=== PATIENT | male | born 1960 | race Caucasian/White ===

== ENCOUNTER 2016-09-07 06:13 | Day surgery (SDC) | payer BC ==
[2016-09-07] MEDS ORDERED: Lactated Ringers 1,000 ML IV SCH (07:00)
[2016-09-07] MEDS ORDERED: Propofol 200 MG/20 ML SDV ONE ×2 (07:16→07:49)
[2016-09-07] MEDS ORDERED: fentaNYL 100 MCG/2 ML SDV ONE (07:16)
[2016-09-07] MEDS ORDERED: Midazolam 1 MG/ML 2 ML SDV ONE (07:16)
[2016-09-07 09:23] VITALS: BP 134/83
--- NOTE | 2016-09-08 08:01 | OR ---
DATE OF PROCEDURE: 09/07/2016 PREOPERATIVE DIAGNOSIS: History of colon polyps. POSTOPERATIVE DIAGNOSIS: Three colon polyps, history of colon polyps. PROCEDURE PERFORMED: Colonoscopy to the cecum with biopsy resection of polyps in the right colon, transverse colon, and distal transverse colon. ANESTHESIA: IV anesthesia with monitored anesthesia care. INDICATIONS: This 56-year-old white male is here for a colonoscopy. He has a history of colon polyps. He says his last colonoscopic exam was done a year ago. I counseled him for the procedure including risks and alternatives, and he gave his informed consent to proceed. DESCRIPTION OF PROCEDURE: The patient was placed in the left lateral decubitus position. IV anesthesia was administered by the Anesthesia Service. Time-out was held. A rectal exam was performed, which was unremarkable except for an absent prostate. The flexible video Olympus colonoscope was introduced through his anus, up his rectum, and out his colon all the way to the cecum. En route in the right colon, we saw a small polyp, which was removed with the biopsy forceps. Once the cecum was reached, the scope was slowly withdrawn examining the mucosa throughout. We saw another small polyp in the transverse colon which was removed with the biopsy forceps and a third polyp was seen in the distal transverse colon. This also was removed with the biopsy forceps. The scope was withdrawn further with no other lesions noted. The scope was retroflexed in rectum with the distal rectum appearing unremarkable. The scope was straightened and removed. He tolerated the procedure well. Mauricio Ellis MD /[id number] RO
== END 2016-09-07 09:20 | disposition home or self-care (01) ==
LOC: JP.SDS 06:13
PROVIDERS: ATTEND Surgery
DX: Z12.11 Encounter for screening for malignant neoplasm of colon (principal); D12.2 Benign neoplasm of ascending colon; D12.3 Benign neoplasm of transverse colon; Z86.010 Personal history of colon polyps; I11.9 Hypertensive heart disease without heart failure; E78.5 Hyperlipidemia, unspecified; Z79.899 Other long term (current) drug therapy; Z98.890 Other specified postprocedural states
CPT/HCPCS: 45380; J2250; J2704; J3010; J7120; 88305

== ENCOUNTER 2017-01-13 05:25 | Day surgery (SDC) | payer BC ==
[2017-01-13] MEDS: Sodium Chloride 0.9% 1,000 ML IV SCH ×2 (06:37→21:41)
[2017-01-13] MEDS ORDERED: Bupivacaine 0.5% 50 ML MDV ONE (06:41)
[2017-01-13] MEDS ORDERED: Lidocaine 1% with EPINEPHrine 1:100,000 50 ML MDV ONE (06:41)
[2017-01-13] MEDS ORDERED: ceFAZolin 2 GM in Sodium Chloride 0.9% 50 ML IV ONE (07:30)
[2017-01-13] MEDS ORDERED: metroNIDAZOLE/Normal Saline 500 MG in Premix Bag 1 BAG IV ONE (07:30)
[2017-01-13] MEDS ORDERED: Propofol 200 MG/20 ML SDV ONE (07:31)
[2017-01-13] MEDS ORDERED: Neostigmine Methylsulfate 1 MG/ML 5 ML Syringe ONE (07:31)
[2017-01-13] MEDS ORDERED: Succinylcholine 200 MG/10 ML MDV ONE (07:31)
[2017-01-13] MEDS ORDERED: Glycopyrrolate 0.2 MG/ML 5 ML MDV ONE (07:31)
[2017-01-13] MEDS ORDERED: Ondansetron 4 MG/2 ML SDV ONE (07:31)
[2017-01-13] MEDS ORDERED: Rocuronium 50 MG/5 ML Vial ONE (07:31)
[2017-01-13] MEDS ORDERED: Dexamethasone 4 MG/ML SDV ONE (07:31)
[2017-01-13] MEDS ORDERED: Lidocaine 1% with EPINEPHrine 1:100,000 50 ML MDV INFILT ONE ×2 (08:16)
[2017-01-13] MEDS ORDERED: Bupivacaine 0.5% 50 ML MDV INFILT ONE ×2 (08:17)
[2017-01-13] MEDS ORDERED: hydrOXYzine HCl 100 MG/2 ML SDV IM ONE (08:32)
[2017-01-13] MEDS ORDERED: Docusate Sodium 100 MG Cap PO PRN (08:35)
[2017-01-13] MEDS ORDERED: Benzocaine/Cetylpyridinium/Menthol Lozenge MUCMEM PRN (08:35)
[2017-01-13] MEDS ORDERED: Promethazine 25 MG/ML SDV IM PRN (08:35)
[2017-01-13] MEDS ORDERED: Bisacodyl 5 MG Tab PO PRN (08:35)
[2017-01-13] MEDS ORDERED: Zolpidem 5 MG Tab PO PRN (08:35)
[2017-01-13] MEDS ORDERED: diphenhydrAMINE 50 MG/ML SDV IVPUSH PRN (08:35)
[2017-01-13] MEDS ORDERED: Ondansetron 4 MG/2 ML SDV IVPUSH PRN (08:35)
[2017-01-13] MEDS ORDERED: Ketorolac 60 MG/2 ML SDV ONE (08:36)
[2017-01-13] MEDS ORDERED: fentaNYL 100 MCG/2 ML SDV IVPUSH PRN (08:42)
[2017-01-13] MEDS: Acetaminophen/HYDROcodone 325-10 MG Tab PO PRN (14:46)
[2017-01-14] MEDS: Acetaminophen/HYDROcodone 325-10 MG Tab PO PRN (03:36)
[2017-01-14 07:20] VITALS: BP 149/87
--- NOTE | 2017-01-14 09:25 | PN ---
DATE OF SERVICE: 01/14/2017 SUBJECTIVE: The patient is doing well. Pain is well controlled. No nausea, vomiting, shortness of breath, or chest pain. OBJECTIVE: VITAL SIGNS: Stable. Temperature 97.9, blood pressure 149/87, pulse 50, respirations 16, and 96% on room air. CARDIOVASCULAR: Regular rhythm and rate. RESPIRATORY: Lungs are clear to consultation bilaterally. ABDOMEN: Bowel sounds positive. Incision is healing well. LABORATORY RESULTS: Show a normal CBC and normal comprehensive metabolic panel. ASSESSMENT AND PLAN: Status post laparoscopic cholecystectomy. The patient was kept overnight due to unknown medical reasons, which was chosen by the nursing staff without my input. Therefore, the patient will be discharged today. Chris Barnes MD /[id number]
--- NOTE | 2017-01-16 07:36 | OR ---
DATE OF PROCEDURE: 01/13/2017 PROCEDURE: Laparoscopic cholecystectomy. PREOPERATIVE DIAGNOSES: 1. Choledocholithiasis. 2. Cholecystitis. 3. Cholelithiasis. POSTOPERATIVE DIAGNOSES: 1. Choledocholithiasis. 2. Cholecystitis. 3. Cholelithiasis. COMPLICATIONS: None. CELEBRITY MANAGER: None. ANESTHESIA: General/local. RISKS: Risks, benefits, alternatives, limitations including, but not limited to infection, bleeding, and injury to common bile duct, cystic duct leaks and other risks not listed here. The patient understands these risks and wished to proceed. PROCEDURE IN DETAIL: The patient was placed in supine position. A curvilinear supraumbilical incision was made. A Veress needle was used to enter the abdomen after drop test was performed without abnormality. This was followed by an Optiview trocar. An additional 10 and two 5 mm ports were also entered under direct visualization. The gallbladder was retracted cephalad and the infundibulum retracted inferolaterally. Using blunt dissection "clear view" of the gallbladder was obtained with a single pulsatile structure entering the gallbladder and a single nonpulsatile structure into the gallbladder. These were clipped x3 and subsequently transected. The remaining 1/3 of the gallbladder was removed off the gallbladder bed without difficulty. The gallbladder was delivered through the upper port using a standard bag. The gallbladder bed was inspected for abnormality which there was none. This was thoroughly irrigated. The patient was tilted in multiple positions to remove the maximum amount of fluid. The air was removed. The wounds were closed with 3-0 Vicryl, 4-0 Vicryl and Dermabond after irrigation and local anesthetic applied. The patient tolerated the procedure well. Chris Barnes MD /[id number]
--- NOTE | 2017-01-16 08:27 | DISCH ---
DISCHARGE DIAGNOSIS: Status post laparoscopic cholecystectomy. ADDITIONAL DIAGNOSIS: None. SUMMARY OF HOSPITAL COURSE: A pleasant 56-year-old male who underwent uneventful laparoscopic cholecystectomy without complication. The patient was kept overnight for unknown etiology. At present, his pain is well-controlled. No nausea, vomiting, shortness of breath, or chest pain. Vital signs are stable. FOLLOWUP: Follow up with Surgery in 7-14 days. DISCHARGE MEDICATIONS: Please see MAR, but include Gerald for pain.
== END 2017-01-14 09:02 | disposition home or self-care (01) ==
LOC: JP.SDS 05:25 → JP.MS 09:20 → JP.SDS 01-14 09:02
PROVIDERS: ATTEND Surgery
DX: K81.1 Chronic cholecystitis (principal); I10 Essential (primary) hypertension; E78.5 Hyperlipidemia, unspecified; E66.01 Morbid (severe) obesity due to excess calories; Z68.35 Body mass index [BMI] 35.0-35.9, adult; Z90.49 Acquired absence of other specified parts of digestive tract; Z98.890 Other specified postprocedural states
CPT/HCPCS: 36415; 47562; 80053; 85025; A9270; J0330; J0690; J1100; J1885; J2405; J2704; J2710; J3010; J3410; J7040; J7050; J7120; 88304

== ENCOUNTER 2017-09-24 08:46 | Observation (INO) | payer BC ==
--- NOTE | 2017-09-24 09:19 | EDM.PDOC ---
ED HPI GENERAL MEDICAL PROBLEM - General Chief Complaint: Chest Pain Stated Complaint: A FIB? Time Seen by Provider: 09/24/17 09:19 Source of Information: Reports: Patient, Family History Limitations: Reports: No Limitations - History of Present Illness INITIAL COMMENTS - FREE TEXT/NARRATIVE: pt was at work and he started feeling dizzy and thought he went back into atrial fib. He has not been ill. He was at work and it was about 7thirty. He had slight chest pressure but no actual sharp chest pain. Onset: Today Duration: Hour(s): Location: Reports: Chest Quality: Reports: Pressure Associated Symptoms: Reports: Other (mild chest tightness and pt feels liteheaded. ) Chest Pain Score (Numeric/FACES): 4 - Related Data Allergies Allergy/AdvReac Type Severity Reaction Status Date / Time No Known Allergies Allergy Verified 09/07/16 06:49 Home Meds: Home Meds Triamterene/Hydrochlorothiazid [Triamterene-HCTZ 37.5-25 MG] 1 each PO DAILY [History] Allopurinol [Zyloprim] 300 mg PO DAILY 09/05/16 [History] Metoprolol Tartrate 12.5 mg PO DAILY 09/05/16 [History] Nitroglycerin 0.4 mg SL ASDIRECTED PRN 09/05/16 [History] Warfarin [Coumadin] 5 mg PO DAILY 09/05/16 [History] Multivitamin with Minerals [Multiple Vitamin] 1 tab PO DAILY 09/28/17 [History] Past Medical History HEENT History: Reports: Impaired Vision Cardiovascular History: Reports: Afib, Hypertension Gastrointestinal History: Reports: Cholelithiasis, Colon Polyp Genitourinary History: Reports: Prostate Disorder Musculoskeletal History: Reports: Fracture, Gout Endocrine/Metabolic History: Reports: Obesity/BMI 30+ Oncologic (Cancer) History: Reports: Prostate - Infectious Disease History Infectious Disease History: Reports: Chicken Pox, Measles, Mumps - Past Surgical History HEENT Surgical History: Reports: Myringotomy w Tube(s), Tonsillectomy Cardiovascular Surgical History: Reports: Other (See Below) Other Cardiovascular Surgeries/Procedures: cardioverter GI Surgical History: Reports: Appendectomy, Cholecystectomy, Colonoscopy Male Surgical History: Reports: Prostate Biopsy, Prostatectomy Endocrine Surgical History: Reports: None Musculoskeletal Surgical History: Reports: None Oncologic Surgical History: Reports: Other (See Below) Other Oncologic Surgeries/Procedures: prostate bx and removal Social & Family History - Tobacco Use Smoking Status *Q: Never Smoker Second Hand Smoke Exposure: No - Caffeine Use Caffeine Use: Reports: Soda - Alcohol Use Days Per Week of Alcohol Use: 0 - Recreational Drug Use Recreational Drug Use: No ED ROS GENERAL - Review of Systems Review Of Systems: See Below Constitutional: Reports: No Symptoms HEENT: Reports: No Symptoms Respiratory: Reports: No Symptoms Cardiovascular: Reports: Palpitations, Other ( slight tightness. ) Endocrine: Reports: No Symptoms GI/Abdominal: Reports: No Symptoms : Reports: No Symptoms Musculoskeletal: Reports: No Symptoms Skin: Reports: No Symptoms ED EXAM, GENERAL - Physical Exam Exam: See Below Free Text/Narrative:: pt arrived eliza adams. He was at work and he thought he went back into atrial fib. Exam Limited By: No Limitations General Appearance: Alert, Mild Distress Ears: Normal TMs Nose: Normal Inspection Throat/Mouth: Normal Inspection Head: Atraumatic Neck: Normal Inspection Respiratory/Chest: No Respiratory Distress Cardiovascular: Tachycardia, Irregularly Irregular GI/Abdominal: Soft, Non-Tender (Male) Exam: Deferred Rectal (Males) Exam: Deferred Back Exam: Normal Inspection Extremities: Normal Inspection Neurological: Alert, Oriented, Normal Cognition Psychiatric: Normal Affect Course - Vital Signs Last Recorded V/S: Last Vital Signs Temp 36.0 C 09/26/17 13:00 Pulse 64 09/26/17 15:00 Resp 13 09/26/17 15:00 BP 127/85 09/26/17 15:00 Pulse Ox 94 L 09/26/17 15:00 - Orders/Labs/Meds Labs: Laboratory Tests 09/24/17 09/24/17 09/24/17 Range/Units 08:55 08:55 08:55 WBC (4.5-11.0) K/uL RBC (4.30-5.90) M/uL Hgb (12.0-15.0) g/dL Hct (40.0-54.0) % MCV (80-98) fL MCH (27-31) pg MCHC (32-36) % Plt Count (150-400) K/uL Neut % (Auto) (36-66) % Lymph % (Auto) (24-44) % [place] % (Auto) (2-6) % Eos % (Auto) (2-4) % Baso % (Auto) (0-1) % PT 19.3 H (9.5-12.0) sec INR 1.76 H (0.80-1.20) Sodium 140 (140-148) mmol/L Potassium 3.9 (3.6-5.2) mmol/L Chloride 105 (100-108) mmol/L Carbon Dioxide 24 (21-32) mmol/L Anion Gap 11.1 (5.0-14.0) mmol/L BUN 23 H D (7-18) mg/dL Creatinine 1.2 (0.8-1.3) mg/dL Est Cr Clr Drug Dosing 70.59 mL/min Estimated GFR (MDRD) > 60 (>60) Glucose 125 H (74-106) mg/dL Calcium 9.1 (8.5-10.1) mg/dL Magnesium (1.8-2.4) mg/dL Total Bilirubin 0.5 (0.2-1.0) mg/dL AST 25 (15-37) U/L ALT 36 (12-78) U/L Alkaline Phosphatase 104 (46-116) U/L Troponin I < 0.017 (0.000-0.056) ng/mL Total Protein 7.4 (6.4-8.2) g/dL Albumin 3.6 (3.4-5.0) g/dL Globulin 3.8 H (2.3-3.5) g/dL Albumin/Globulin Ratio 1.0 L (1.2-2.2) 09/24/17 09/24/17 Range/Units 08:55 08:59 WBC 6.0 (4.5-11.0) K/uL RBC 5.88 (4.30-5.90) M/uL Hgb 16.5 H D (12.0-15.0) g/dL Hct 49.4 (40.0-54.0) % MCV 84 (80-98) fL MCH 28 (27-31) pg MCHC 33 (32-36) % Plt Count 351 (150-400) K/uL Neut % (Auto) 63 (36-66) % Lymph % (Auto) 24 (24-44) % [place] % (Auto) 11 H (2-6) % Eos % (Auto) 2 (2-4) % Baso % (Auto) 1 (0-1) % PT (9.5-12.0) sec INR (0.80-1.20) Sodium (140-148) mmol/L Potassium (3.6-5.2) mmol/L Chloride (100-108) mmol/L Carbon Dioxide (21-32) mmol/L Anion Gap (5.0-14.0) mmol/L BUN (7-18) mg/dL Creatinine (0.8-1.3) mg/dL Est Cr Clr Drug Dosing mL/min Estimated GFR (MDRD) (>60) Glucose (74-106) mg/dL Calcium (8.5-10.1) mg/dL Magnesium 2.2 (1.8-2.4) mg/dL Total Bilirubin (0.2-1.0) mg/dL AST (15-37) U/L ALT (12-78) U/L Alkaline Phosphatase (46-116) U/L Troponin I (0.000-0.056) ng/mL Total Protein (6.4-8.2) g/dL Albumin (3.4-5.0) g/dL Globulin (2.3-3.5) g/dL Albumin/Globulin Ratio (1.2-2.2) Meds: Medications Discontinued Medications Generic Name Dose Route Start Last Admin Trade Name Freq PRN Reason Stop Dose Admin Acetaminophen 650 mg 09/24/17 12:05 Tylenol PO Q4H PRN Pain (Mild 1-3)/fever Allopurinol 300 mg 09/25/17 09:00 09/26/17 08:58 Zyloprim PO 300 mg DAILY ERIN Administration Diltiazem HCl 10 mg 09/24/17 09:20 09/24/17 09:23 Diltiazem IVPUSH 09/24/17 09:21 Not Given ONETIME ONE Diltiazem HCl 60 mg 09/24/17 09:35 09/24/17 09:39 Cardizem PO 09/24/17 09:36 60 mg ONETIME ONE Administration Diltiazem HCl 30 mg 09/24/17 14:00 09/26/17 14:36 Cardizem PO Not Given Q6H ERIN Diltiazem HCl 30 mg 09/24/17 22:00 09/25/17 05:39 Cardizem PO 30 mg Q8HR ERIN Administration Diltiazem HCl 60 mg 09/25/17 10:00 09/26/17 03:54 Cardizem PO 60 mg Q6H ERIN Administration Sodium Chloride 1,000 mls @ 150 mls/hr 09/24/17 09:45 09/24/17 09:41 Normal Saline IV 150 mls/hr ASDIRECTED ERIN Administration Metoprolol Tartrate 5 mg 09/24/17 09:23 09/24/17 09:26 Lopressor IVPUSH 09/24/17 09:24 5 mg ONETIME ONE Administration Metoprolol Tartrate 25 mg 09/25/17 09:00 09/26/17 08:56 Lopressor PO 25 mg DAILY ERIN Administration Ondansetron HCl 4 mg 09/24/17 12:05 Zofran Odt PO Q6H PRN Nausea able to take PO Oxycodone HCl 5 mg 09/24/17 12:05 Oxycodone PO Q4H PRN Pain (moderate 4-6) Propofol Confirm 09/26/17 12:29 Diprivan 20 Ml Administered 09/26/17 12:30 Dose 200 mg .ROUTE .STK-MED ONE Sodium Chloride 10 ml 09/24/17 12:05 Saline Flush FLUSH ASDIRECTED PRN Keep Vein Open Triamterene/HCTZ 1 each 09/25/17 09:00 09/26/17 08:58 Maxzide 25-37.5 Mg PO 1 each DAILY ERIN Administration Warfarin Sodium 7.5 mg 09/24/17 13:30 09/24/17 13:57 Coumadin PO 09/24/17 13:31 7.5 mg ONETIME ONE Administration Warfarin Sodium 5 mg 09/25/17 15:00 09/25/17 14:33 Coumadin PO 09/25/17 15:01 5 mg ONETIME ONE Administration - Re-Assessments/Exams Free Text/Narrative Re-Assessment/Exam: 09/24/17 09:40 Pt has an inr of 1.76 which is subtherapeutic. He has a normal trop. He was given lopressor 5 mg iv and his rate did go down in the 120 range. Departure - Departure Time of Disposition: 15:00 Disposition: Admitted As Inpatient 64 Condition: Fair Clinical Impression: Atrial fibrillation, Paroxysmal atrial fibrillation with rapid ventricular response
[2017-09-24] MEDS ORDERED: Diltiazem 25 MG/5 ML SDV IVPUSH ONE (09:20)
[2017-09-24] MEDS ORDERED: Metoprolol Tartrate 5 MG/5 ML SDV IVPUSH ONE (09:23)
[2017-09-24] MEDS ORDERED: Diltiazem IR 30 MG Tab PO ONE (09:35)
[2017-09-24] MEDS ORDERED: Sodium Chloride 0.9% 1,000 ML IV SCH (09:45)
--- NOTE | 2017-09-24 10:20 | PCM.HP ---
H&P History of Present Illness - General Date of Service: 09/24/17 Admit Problem/Dx: Admission Diagnosis/Problem Admission Diagnosis/Problem Atrial fibrillation Source of Information: Patient, Family, Provider, RN Notes Reviewed History Limitations: Reports: No Limitations - History of Present Illness Initial Comments - Free Text/Narative: Mr. Arauz is a 57-year-old gentleman was admitted to observation status through the emergency department with atrial fibrillation and rapid ventricular response. He has a previous history of atrial fibrillation with 1 previous documented episode and he is on long-term oral anticoagulation with warfarin. He was feeling well until this morning when he noted rapid heart rate that seemed to be irregular and he presented to the emergency department for further evaluation. He did report symptoms of mild chest heaviness, lightheadedness, and shortness of breath. INR obtained in the emergency department is subtherapeutic at 1.75. Rate when he presented to the emergency department was in the range of 140 and has improved after he received IV Lopressor 5 mg. He is also received a dose of diltiazem 60 mg by mouth. EKG shows no acute ST segment changes and troponin level is within normal range. Chest Pain Score (Numeric/FACES): 4 - Related Data Allergies/Adverse Reactions: Allergies Allergy/AdvReac Type Severity Reaction Status Date / Time No Known Allergies Allergy Verified 09/07/16 06:49 Home Medications: Home Meds Triamterene/Hydrochlorothiazid [Triamterene-HCTZ 37.5-25 MG] 1 each PO DAILY [History] Allopurinol [Zyloprim] 300 mg PO DAILY 09/05/16 [History] Metoprolol Tartrate 25 mg PO DAILY 09/05/16 [History] Nitroglycerin 0.4 mg SL ASDIRECTED PRN 09/05/16 [History] Warfarin [Coumadin] 5 mg PO ASDIRECTED 09/05/16 [History] Warfarin [Coumadin] 2.5 mg PO ASDIRECTED 01/13/17 [History] Past Medical History HEENT History: Reports: Impaired Vision Cardiovascular History: Reports: Afib, Hypertension Gastrointestinal History: Reports: Cholelithiasis, Colon Polyp Genitourinary History: Reports: Prostate Disorder Musculoskeletal History: Reports: Fracture, Gout Endocrine/Metabolic History: Reports: Obesity/BMI 30+ Oncologic (Cancer) History: Reports: Prostate - Infectious Disease History Infectious Disease History: Reports: Chicken Pox, Measles, Mumps - Past Surgical History HEENT Surgical History: Reports: Myringotomy w Tube(s), Tonsillectomy Cardiovascular Surgical History: Reports: Other (See Below) Other Cardiovascular Surgeries/Procedures: cardioverter GI Surgical History: Reports: Appendectomy, Cholecystectomy, Colonoscopy Male Surgical History: Reports: Prostate Biopsy, Prostatectomy Endocrine Surgical History: Reports: None Musculoskeletal Surgical History: Reports: None Oncologic Surgical History: Reports: Other (See Below) Other Oncologic Surgeries/Procedures: prostate bx and removal Social & Family History - Tobacco Use Smoking Status *Q: Never Smoker Second Hand Smoke Exposure: No - Caffeine Use Caffeine Use: Reports: Soda - Alcohol Use Days Per Week of Alcohol Use: 0 - Recreational Drug Use Recreational Drug Use: No H&P Review of Systems - Review of Systems: Review Of Systems: See Below General: Reports: Weakness. Denies: Fever, Chills, Diaphoresis HEENT: Reports: No Symptoms Pulmonary: Reports: No Symptoms Cardiovascular: Reports: Palpitations. Denies: Chest Pain, Dyspnea on Exertion , Orthopnea, PND, Edema, Lightheadedness Gastrointestinal: Reports: No Symptoms Genitourinary: Reports: No Symptoms Musculoskeletal: Reports: No Symptoms Skin: Reports: No Symptoms Psychiatric: Reports: No Symptoms Neurological: Reports: No Symptoms Hematologic/Lymphatic: Reports: No Symptoms Immunologic: Reports: No Symptoms Exam - Exam Exam: See Below - Vital Signs Vital Signs: Last Vital Signs Temp 98.6 F 09/24/17 08:54 Pulse 122 H 09/24/17 09:34 Resp 19 09/24/17 09:25 BP 139/100 H 09/24/17 09:34 Pulse Ox 95 09/24/17 09:25 Weight: 280 lb - Exam Quality Assessment: DVT Prophylaxis General: Alert, Oriented, Cooperative, Mild Distress HEENT: Conjunctiva Clear, Hearing Intact, Mucosa Moist & [place], Normal Nasal Septum, Posterior Pharynx Clear, Pupils Equal Neck: Supple, Trachea Midline, +2 Carotid Pulse wo Bruit Lungs: Clear to Auscultation, Normal Respiratory Effort Cardiovascular: Normal S1, Normal S2, Irregular Rhythm, Tachycardia. No: Systolic Murmur, Diastolic Murmur GI/Abdominal Exam: Soft, Non-Tender, No Organomegaly, No Distention Back Exam: Normal Inspection, Full Range of Motion Extremities: Non-Tender, No Pedal Edema Skin: Warm, Dry, Intact Neurological: Cranial Nerves Intact, Strength Equal Bilateral, Normal Speech, Normal Tone, Sensation Intact. No: Focal Deficit Neuro Extensive - Mental Status: Alert, Oriented x3, Normal Mood/Affect, Normal Cognition, Memory Intact - Patient Data Lab Results Last 24 hrs: Laboratory Results - last 24 hr 09/24/17 09/24/17 09/24/17 Range/Units 08:55 08:55 08:55 WBC (4.5-11.0) K/uL RBC (4.30-5.90) M/uL Hgb (12.0-15.0) g/dL Hct (40.0-54.0) % MCV (80-98) fL MCH (27-31) pg MCHC (32-36) % Plt Count (150-400) K/uL Neut % (Auto) (36-66) % Lymph % (Auto) (24-44) % [place] % (Auto) (2-6) % Eos % (Auto) (2-4) % Baso % (Auto) (0-1) % PT 19.3 H (9.5-12.0) sec INR 1.76 H (0.80-1.20) Sodium 140 (140-148) mmol/L Potassium 3.9 (3.6-5.2) mmol/L Chloride 105 (100-108) mmol/L Carbon Dioxide 24 (21-32) mmol/L Anion Gap 11.1 (5.0-14.0) mmol/L BUN 23 H D (7-18) mg/dL Creatinine 1.2 (0.8-1.3) mg/dL Est Cr Clr Drug Dosing 70.59 mL/min Estimated GFR (MDRD) > 60 (>60) Glucose 125 H (74-106) mg/dL Calcium 9.1 (8.5-10.1) mg/dL Magnesium (1.8-2.4) mg/dL Total Bilirubin 0.5 (0.2-1.0) mg/dL AST 25 (15-37) U/L ALT 36 (12-78) U/L Alkaline Phosphatase 104 (46-116) U/L Troponin I < 0.017 (0.000-0.056) ng/mL Total Protein 7.4 (6.4-8.2) g/dL Albumin 3.6 (3.4-5.0) g/dL Globulin 3.8 H (2.3-3.5) g/dL Albumin/Globulin Ratio 1.0 L (1.2-2.2) 09/24/17 09/24/17 Range/Units 08:55 08:59 WBC 6.0 (4.5-11.0) K/uL RBC 5.88 (4.30-5.90) M/uL Hgb 16.5 H D (12.0-15.0) g/dL Hct 49.4 (40.0-54.0) % MCV 84 (80-98) fL MCH 28 (27-31) pg MCHC 33 (32-36) % Plt Count 351 (150-400) K/uL Neut % (Auto) 63 (36-66) % Lymph % (Auto) 24 (24-44) % [place] % (Auto) 11 H (2-6) % Eos % (Auto) 2 (2-4) % Baso % (Auto) 1 (0-1) % PT (9.5-12.0) sec INR (0.80-1.20) Sodium (140-148) mmol/L Potassium (3.6-5.2) mmol/L Chloride (100-108) mmol/L Carbon Dioxide (21-32) mmol/L Anion Gap (5.0-14.0) mmol/L BUN (7-18) mg/dL Creatinine (0.8-1.3) mg/dL Est Cr Clr Drug Dosing mL/min Estimated GFR (MDRD) (>60) Glucose (74-106) mg/dL Calcium (8.5-10.1) mg/dL Magnesium 2.2 (1.8-2.4) mg/dL Total Bilirubin (0.2-1.0) mg/dL AST (15-37) U/L ALT (12-78) U/L Alkaline Phosphatase (46-116) U/L Troponin I (0.000-0.056) ng/mL Total Protein (6.4-8.2) g/dL Albumin (3.4-5.0) g/dL Globulin (2.3-3.5) g/dL Albumin/Globulin Ratio (1.2-2.2) Result Diagrams: 09/24/17 08:59 09/24/17 08:55 *Q Meaningful Use (ADM) - VTE Risk Assess *Q Each Risk Factor Represents 1 Point: Age 41 - 59 years, Obesity ( BMI > 25 kg/m2 ) Total Score 1 Point Risk Factors: 2 Each Risk Factor Represents 2 Points: None Total Score 2 Point Risk Factors: 0 Each Risk Factor Represents 3 Points: None Total Score 3 Point Risk Factors: 0 Each Risk Factor Represents 5 Points: None Total Score 5 Point Risk Factors: 0 Venous Thromboembolism Risk Factor Score *Q: 2 Problem List Initiated/Reviewed/Updated: Yes Orders Last 24hrs: Active Orders 24 hr Category Date Time Status Patient Status Manage Transfer [TRANSFER] Routine ADT 09/24/17 10:13 Ordered EKG Documentation Completion [RC] ASDIRECTED Care 09/24/17 09:00 Active Chest 1V Frontal [CR] Stat Exams 09/24/17 09:45 Taken UA W/MICROSCOPIC [URIN] Urgent Lab 09/24/17 08:59 Ordered Sodium Chloride 0.9% [Normal Saline] 1,000 ml Med 09/24/17 09:45 Active IV ASDIRECTED Resuscitation Status Routine Resus Stat 09/24/17 10:15 Ordered EKG 12 Lead [EK] Routine Ther 09/24/17 09:00 Ordered Medication Orders Sodium Chloride (Normal Saline) 1,000 mls @ 150 mls/hr IV ASDIRECTED ERIN Last Admin: 09/24/17 09:41 Dose: 150 mls/hr Assessment/Plan Comment:: ASSESSMENT AND PLAN ATRIAL FIBRILLATION WITH RAPID VENTRICULAR RESPONSE-previous history, abrupt onset this morning, associated with relatively mild symptoms. Not a candidate for cardioversion given subtherapeutic INR. IV diltiazem is not available, we' ll plan to use oral medication and IV barbara therapy as needed -Observation admission to ICU -IV Lopressor as needed -Diltiazem 30 mg by mouth every 6 hours -Warfarin 7.5 mg by mouth today -Recheck INR in a.m. HYPERTENSION -Continue outpatient medical regimen CORONARY ARTERY DISEASE-currently asymptomatic -Continue outpatient management MAINTENANCE ISSUES -DVT prophylaxis;Current therapy with warfarin should provide adequate DVT prophylaxis -GI prophylaxis;Not indicated -Beckford catheter;None indicated -Nutrition;2 g sodium diet -Nicotine dependence;Not required CODE STATUS-FULL CODE ADMISSION STATUS-this patient will be admitted to observation status, expect no more than a one night hospital stay for evaluation and management of problems as outlined above. DISPOSITION-anticipate discharge to home after the hospital stay. PRIMARY CARE PROVIDER-Dr. Hernandez
[2017-09-24] MEDS ORDERED: Acetaminophen 325 MG Tab PO PRN (12:05)
[2017-09-24] MEDS ORDERED: Ondansetron 4 MG Tab.DIS PO PRN (12:05)
[2017-09-24] MEDS ORDERED: Sodium Chloride 0.9% 10 ML Syringe FLUSH PRN (12:05)
[2017-09-24] MEDS ORDERED: oxyCODONE 5 MG Tab PO PRN (12:05)
[2017-09-24] MEDS ORDERED: Warfarin 2.5 MG Tab PO ONE (13:30)
[2017-09-24] MEDS: Diltiazem IR 30 MG Tab PO SCH ×2 (13:57→21:31)
[2017-09-25] MEDS: Diltiazem IR 30 MG Tab PO SCH ×4 (05:39→22:00)
[2017-09-25] MEDS: Metoprolol Tartrate 25 MG Tab PO SCH (08:55)
[2017-09-25] MEDS: Hydrochlorothiazide/Triamterene 25-37.5 Tab PO SCH (08:58)
[2017-09-25] MEDS: Allopurinol 300 MG Tab PO SCH (08:59)
[2017-09-25] MEDS ORDERED: Non-Formulary Medication 1 Each (Triamterene/Hydrochlorothiazid [Triamterene-Hctz 37.5-25 PO SCH (09:00)
--- NOTE | 2017-09-25 09:40 | CR ---
Chest 1V Frontal INDICATION: atrial fib COMPARISON: None FINDINGS: AP portable chest. Heart size normal. Lungs are clear. No pleural effusion.
--- NOTE | 2017-09-25 10:38 | PCM.PN ---
- General Info Date of Service: 09/25/17 Functional Status: Reports: Tolerating Diet, Ambulating - Review of Systems General: Denies: Fever Cardiovascular: Denies: Chest Pain Systems Review Comment:: There were no acute events overnight. Heart rate was initially under good control but has been greater than 100 much of the night. Patient does not have palpitations, chest pain or chest tightness. He has not been active as of yet today. Blood pressure mildly elevated but stable. INR now in the therapeutic range. - Patient Data Vitals - Most Recent: Last Vital Signs Temp 35.9 C 09/25/17 10:00 Pulse 84 09/25/17 10:00 Resp 18 09/25/17 10:00 BP 133/94 H 09/25/17 10:00 Pulse Ox 96 09/25/17 10:00 Weight - Most Recent: 132.5 kg I&O - Last 24 Hours: Intake & Output 09/24/17 09/25/17 09/25/17 22:59 06:59 14:59 Intake Total 650 500 Output Total 400 1500 150 Balance 250 -1000 -150 Lab Results Last 24 Hours: Laboratory Results - last 24 hr 09/25/17 09/25/17 Range/Units 05:40 05:40 PT 23.7 H (9.5-12.0) sec INR 2.15 H (0.80-1.20) Sodium 142 (140-148) mmol/L Potassium 3.9 (3.6-5.2) mmol/L Chloride 107 (100-108) mmol/L Carbon Dioxide 26 (21-32) mmol/L Anion Gap 8.8 (5.0-14.0) mmol/L BUN 15 (7-18) mg/dL Creatinine 1.1 (0.8-1.3) mg/dL Est Cr Clr Drug Dosing 77.01 mL/min Estimated GFR (MDRD) > 60 (>60) Glucose 107 H (74-106) mg/dL Calcium 8.7 (8.5-10.1) mg/dL Med Orders - Current: Current Medications Acetaminophen (Tylenol) 650 mg PO Q4H PRN PRN Reason: Pain (Mild 1-3)/fever Allopurinol (Zyloprim) 300 mg PO DAILY ERIN Last Admin: 09/25/17 08:59 Dose: 300 mg Diltiazem HCl (Cardizem) 60 mg PO Q6H [facility] Last Admin: 09/25/17 08:59 Dose: 60 mg Metoprolol Tartrate (Lopressor) 25 mg PO DAILY [facility] Last Admin: 09/25/17 08:55 Dose: 25 mg Ondansetron HCl (Zofran Odt) 4 mg PO Q6H PRN PRN Reason: Nausea able to take PO Oxycodone HCl (Oxycodone) 5 mg PO Q4H PRN PRN Reason: Pain (moderate 4-6) Sodium Chloride (Saline Flush) 10 ml FLUSH ASDIRECTED PRN PRN Reason: Keep Vein Open Triamterene/HCTZ (Maxzide 25-37.5 Mg) 1 each PO DAILY [facility] Last Admin: 09/25/17 08:58 Dose: 1 each Discontinued Medications Diltiazem HCl (Diltiazem) 10 mg IVPUSH ONETIME ONE Stop: 09/24/17 09:21 Last Admin: 09/24/17 09:23 Dose: Not Given Diltiazem HCl (Cardizem) 60 mg PO ONETIME ONE Stop: 09/24/17 09:36 Last Admin: 09/24/17 09:39 Dose: 60 mg Diltiazem HCl (Cardizem) 30 mg PO Q6H [facility] Last Admin: 09/24/17 13:57 Dose: 30 mg Diltiazem HCl (Cardizem) 30 mg PO Q8HR [facility] Last Admin: 09/25/17 05:39 Dose: 30 mg Sodium Chloride (Normal Saline) 1,000 mls @ 150 mls/hr IV ASDIRECTED [facility] Last Admin: 09/24/17 09:41 Dose: 150 mls/hr Metoprolol Tartrate (Lopressor) 5 mg IVPUSH ONETIME ONE Stop: 09/24/17 09:24 Last Admin: 09/24/17 09:26 Dose: 5 mg Warfarin Sodium (Coumadin) 7.5 mg PO ONETIME ONE Stop: 09/24/17 13:31 Last Admin: 09/24/17 13:57 Dose: 7.5 mg - Exam Quality Assessment: No: Supplemental Oxygen General: Alert, Oriented, Cooperative, No Acute Distress Neck: Supple Lungs: Clear to Auscultation, Normal Respiratory Effort Cardiovascular: Irregular Rhythm, Tachycardia GI/Abdominal Exam: Soft, No Distention Extremities: Pedal Edema Psy/Mental Status: Alert, Normal Affect - Problem List Review Problem List Initiated/Reviewed/Updated: Yes - My Orders Last 24 Hours: My Active Orders 09/25/17 10:00 Diltiazem IR [Cardizem] 60 mg PO Q6H - Plan Plan:: ASSESSMENT AND PLAN ATRIAL FIBRILLATION WITH RAPID VENTRICULAR RESPONSE - one previous episode, abrupt onset yesterday morning. Suboptimal rate control with low dose of diltiazem. No obvious trigger at this time. -Observation admission to ICU -Consider increasing dose of metoprolol -Increase Diltiazem to 60 mg by mouth every 6 hours -Warfarin 5 mg by mouth today -Recheck INR in a.m. HYPERTENSION - mild elevation but stable. -Continue outpatient medical regimen CORONARY ARTERY DISEASE - currently asymptomatic -Continue outpatient management MAINTENANCE ISSUES -DVT prophylaxis;Current therapy with warfarin should provide adequate DVT prophylaxis -GI prophylaxis;Not indicated -Beckford catheter;None indicated -Nutrition;2 g sodium diet DISPOSITION - anticipate discharge to home after the hospital stay. Twin Fernandes M.D.
[2017-09-25] MEDS ORDERED: Warfarin 5 MG Tab PO ONE (15:00)
[2017-09-26] MEDS: Diltiazem IR 30 MG Tab PO SCH ×3 (03:19→14:36)
[2017-09-26] MEDS: Metoprolol Tartrate 25 MG Tab PO SCH (08:56)
[2017-09-26] MEDS: Hydrochlorothiazide/Triamterene 25-37.5 Tab PO SCH (08:58)
[2017-09-26] MEDS: Allopurinol 300 MG Tab PO SCH (08:58)
--- NOTE | 2017-09-26 12:25 | PCM.PRNOTE ---
- Free Text/Narrative Note: Date of service: 09/26/17 Proposed procedure: synchronized cardioversion Preprocedure diagnosis: paroxysmal atrial fibrillation with rapid ventricular response Post procedure diagnosis: paroxysmal atrial fibrillation with rapid ventricular response Indication for procedure: Cameron was evaluated today for management atrial fibrillation with symptoms and rapid ventricular response. Synchronized cardioversion was recommended as a primary treatment after medical management was not successful. Description of the procedure: Cameron is currently located ICU room 122. We have reviewed the potential risks of electrical cardioversion including but not limited to: Superficial skin renner, ineffective treatment, other arrhythmias, reaction to anesthesia medications or potentially asystole. The benefits of the procedure have also been reviewed. At this time the patient wishes to proceed with electrical cardioversion. All necessary pre-procedure information and paperwork has been provided and completed, respectively. The patient was connected to cardioversion pads and monitoring equipment per protocol. Prior to the procedure, a timeout was held with nursing and anesthesia present to confirm the right patient and right procedure. Once appropriate anesthesia was applied the machine was charged to 200 Joules and a synchronized electrical shock was applied. The patient was successfully converted to normal sinus rhythm based on telemetry monitoring. He will remain in hiscurrent location until anesthesia has dissipated and the patient is more awake and alert. They will then be discharged to home once medically stable. Anticoagulation should be continued for at least one month post cardioversion. There were no immediate complications noted from the procedure. Twin Fernandes M.D.
[2017-09-26] MEDS ORDERED: Propofol 200 MG/20 ML SDV ONE (12:29)
[2017-09-26 15:06] VITALS: BP 127/85
--- NOTE | 2017-09-26 15:50 | PCM.DCSUM1 ---
Discharge Summary - Hospital Course Brief History: 57-year-old male with history of one episode of atrial fibrillation on long-term anticoagulation, essential hypertension and obesity with BMI greater than 40 who presented with palpitations, chest heaviness and shortness of breath. He was admitted for management of atrial fibrillation with rapid ventricular response. - Discharge Data Discharge Date: 09/26/17 Discharge Disposition: Home, Self-Care 01 Condition: Good - Discharge Diagnosis/Problem(s) (1) Paroxysmal atrial fibrillation with rapid ventricular response SNOMED Code(s): 626536851, [id number] ICD Code: I48.0 - PAROXYSMAL ATRIAL FIBRILLATION Status: Acute Current Visit: Yes (2) Essential hypertension SNOMED Code(s): 61726280 ICD Code: I10 - ESSENTIAL (PRIMARY) HYPERTENSION Status: Chronic Current Visit: No (3) Morbid obesity with BMI of 40.0-44.9, adult SNOMED Code(s): 185496381 ICD Code: E66.01 - MORBID (SEVERE) OBESITY DUE TO EXCESS CALORIES; Z68.41 - BODY MASS INDEX (BMI) 40.0-44.9, ADULT Status: Chronic Current Visit: No - Patient Summary/Data Hospital Course: Cameron presented to the emergency room with acute onset of palpitations, shortness of breath and chest heaviness. In the emergency room he was noted to be in atrial fibrillation with a rate in the 150s. Laboratory studies were unremarkable and there is no evidence for ischemia. He was admitted to the intensive care unit and because of the lack of availability of IV diltiazem we use oral diltiazem. He did also receive a dose of IV metoprolol. Over the first 24 hours the diltiazem was initially started at a low dose but was uptitrated the next morning because of ongoing tachycardia. We titrated the medication throughout the night but the patient remained in atrial fibrillation with suboptimal rate control. Blood pressure was on the low side at this time and we were not able to further increase the diltiazem. We discussed the potential risks and benefits of cardioversion. He was still within the 48 hour window of onset the atrial fibrillation so we elected to utilize cardioversion. A single shock of 200 J was applied after anesthesia was administered. This was successful in returning him to a normal sinus rhythm. Postprocedure he has remained stable. He has been up and walking around and has not had any symptoms of shortness of breath or chest heaviness. The exact cause for the episode was not entirely clear. There is no evidence for infection. His kidney function has been normal and electrolytes were acceptable. I believe he is safe for discharge and outpatient management at this time. He will be following up with his foreign exchange dealer to discuss additional management and potentially ablation. No medication changes were made during the hospital stay or at the time of discharge. He will continue on his warfarin as previously prescribed. - Patient Instructions Diet: Heart Healthy Diet Activity: As Tolerated Driving: Do Not Drive (no driving today because you had anesthesia, may resume driving tomorrow) Showering/Bathing: May Shower Notify Provider of: Fever, Increased Pain, Nausea and/or Vomiting Other/Special Instructions: 1. You were in the hospital for management of paroxysmal atrial fibrillation with rapid ventricular response. Your heart rhythm did not respond to medications so we utilized a cardioversion to return you to a normal sinus rhythm. This procedure was successful. It is important that you continue your Coumadin for the next month without interruption to help reduce the risk of blood clot formation. No medication changes were made and no new medications were prescribed. 2. Please schedule a follow-up appointment with your foreign exchange dealer and discuss the risks and benefits of an ablation as treatment for the atrial fibrillation. 3. Please seek medical attention if you develop fever greater than 101, have return of palpitations or if you develop chest pain/pressure. - Discharge Plan Home Medications: Home Meds Triamterene/Hydrochlorothiazid [Triamterene-HCTZ 37.5-25 MG] 1 each PO DAILY [History] Allopurinol [Zyloprim] 300 mg PO DAILY 09/05/16 [History] Metoprolol Tartrate 25 mg PO DAILY 09/05/16 [History] Nitroglycerin 0.4 mg SL ASDIRECTED PRN 09/05/16 [History] Warfarin [Coumadin] 5 mg PO ASDIRECTED 09/05/16 [History] Warfarin [Coumadin] 2.5 mg PO ASDIRECTED 01/13/17 [History] Patient Handouts: Electrical Cardioversion, Atrial Fibrillation, [id number] Referrals: Terry Hernandez MD [Primary Care Provider] - (f/u as needed after the hospital stay ) - Discharge Summary/Plan Comment DC Time >30 min.: No - Patient Data Vitals - Most Recent: Last Vital Signs Temp 36.0 C 09/26/17 13:00 Pulse 64 09/26/17 15:00 Resp 13 09/26/17 15:00 BP 127/85 09/26/17 15:00 Pulse Ox 94 L 09/26/17 15:00 Weight - Most Recent: 130.861 kg I&O - Last 24 hours: Intake & Output 09/26/17 09/26/17 09/26/17 06:59 14:59 22:59 Output Total 800 Balance -800 Lab Results - Last 24 hrs: Laboratory Results - last 24 hr 09/26/17 Range/Units 05:00 PT 26.6 H (9.5-12.0) sec INR 2.40 H (0.80-1.20) Med Orders - Current: Current Medications Acetaminophen (Tylenol) 650 mg PO Q4H PRN PRN Reason: Pain (Mild 1-3)/fever Allopurinol (Zyloprim) 300 mg PO DAILY [facility] Last Admin: 09/26/17 08:58 Dose: 300 mg Metoprolol Tartrate (Lopressor) 25 mg PO DAILY [facility] Last Admin: 09/26/17 08:56 Dose: 25 mg Ondansetron HCl (Zofran Odt) 4 mg PO Q6H PRN PRN Reason: Nausea able to take PO Oxycodone HCl (Oxycodone) 5 mg PO Q4H PRN PRN Reason: Pain (moderate 4-6) Sodium Chloride (Saline Flush) 10 ml FLUSH ASDIRECTED PRN PRN Reason: Keep Vein Open Triamterene/HCTZ (Maxzide 25-37.5 Mg) 1 each PO DAILY [facility] Last Admin: 09/26/17 08:58 Dose: 1 each Discontinued Medications Diltiazem HCl (Diltiazem) 10 mg IVPUSH ONETIME ONE Stop: 09/24/17 09:21 Last Admin: 09/24/17 09:23 Dose: Not Given Diltiazem HCl (Cardizem) 60 mg PO ONETIME ONE Stop: 09/24/17 09:36 Last Admin: 09/24/17 09:39 Dose: 60 mg Diltiazem HCl (Cardizem) 30 mg PO Q6H [facility] Last Admin: 09/26/17 14:36 Dose: Not Given Diltiazem HCl (Cardizem) 30 mg PO Q8HR [facility] Last Admin: 09/25/17 05:39 Dose: 30 mg Diltiazem HCl (Cardizem) 60 mg PO Q6H [facility] Last Admin: 09/26/17 03:54 Dose: 60 mg Sodium Chloride (Normal Saline) 1,000 mls @ 150 mls/hr IV ASDIRECTED [facility] Last Admin: 09/24/17 09:41 Dose: 150 mls/hr Metoprolol Tartrate (Lopressor) 5 mg IVPUSH ONETIME ONE Stop: 09/24/17 09:24 Last Admin: 09/24/17 09:26 Dose: 5 mg Propofol (Diprivan 20 Ml) Confirm Administered Dose 200 mg .ROUTE .STK-MED ONE Stop: 09/26/17 12:30 Warfarin Sodium (Coumadin) 7.5 mg PO ONETIME ONE Stop: 09/24/17 13:31 Last Admin: 09/24/17 13:57 Dose: 7.5 mg Warfarin Sodium (Coumadin) 5 mg PO ONETIME ONE Stop: 09/25/17 15:01 Last Admin: 09/25/17 14:33 Dose: 5 mg - Exam Quality Assessment: Denies: Supplemental Oxygen General: Reports: Alert, Oriented, Cooperative, No Acute Distress Neck: Reports: Supple Lungs: Reports: Normal Respiratory Effort Cardiovascular: Reports: Regular Rate, Regular Rhythm Extremities: Pedal Edema Psy/Mental Status: Reports: Alert, Normal Affect *Q Meaningful Use (DIS) - VTE *Q VTE Pharmacological Contraindications *Q: High INR Value
== END 2017-09-26 15:56 | disposition home or self-care (01) ==
LOC: JP.ED 08:46 → JP.ICU 10:13
PROVIDERS: ADMIT Hospitalist; ATTEND Internal Medicine
DX: I48.0 Paroxysmal atrial fibrillation (principal); I10 Essential (primary) hypertension; I25.10 Atherosclerotic heart disease of native coronary artery without angina pectoris; M10.9 Gout, unspecified; E66.01 Morbid (severe) obesity due to excess calories; Z68.41 Body mass index [BMI] 40.0-44.9, adult; Z79.01 Long term (current) use of anticoagulants; Z79.899 Other long term (current) drug therapy
CPT/HCPCS: 36415; 71045; 80048; 80053; 83735; 84484; 85025; 85610; 93005; 96361; 96374; 99285; A9270; J2704; J7040; G0378; J3490

== ENCOUNTER 2017-10-13 06:57 | Observation (INO) | payer BC ==
[2017-10-13] MEDS ORDERED: Sodium Chloride 0.9% 10 ML Syringe FLUSH PRN (07:35)
[2017-10-13] MEDS ORDERED: Diltiazem IR 30 MG Tab PO ONE (07:43)
[2017-10-13] MEDS ORDERED: Sodium Chloride 0.9% 1,000 ML IV SCH (07:45)
--- NOTE | 2017-10-13 07:51 | EDM.PDOC ---
ED HPI GENERAL MEDICAL PROBLEM - General Chief Complaint: Cardiovascular Problem Stated Complaint: ATRIAL FIB Time Seen by Provider: 10/13/17 07:45 Source of Information: Reports: Patient History Limitations: Reports: No Limitations - History of Present Illness INITIAL COMMENTS - FREE TEXT/NARRATIVE: pt arrived with a history of once again being at work and feeling like his heart is racing/ He has a history of atrial fib and was in it 2 weeks ago and was cardioverted. He has not done anything different. He did have some chest tightness at work after he went into the rhythm. Onset: Today, Sudden Duration: Hour(s): Location: Reports: Chest Associated Symptoms: Reports: Chest Pain, Other ( rapid heart rhythm. ) - Related Data Allergies Allergy/AdvReac Type Severity Reaction Status Date / Time No Known Allergies Allergy Verified 10/13/17 07:23 Home Meds: Home Meds Allopurinol [Zyloprim] 300 mg PO DAILY 09/05/16 [History] Nitroglycerin 0.4 mg SL ASDIRECTED PRN 09/05/16 [History] Warfarin [Coumadin] 5 mg PO DAILY 09/05/16 [History] Multivitamin with Minerals [Multiple Vitamin] 1 tab PO DAILY 09/28/17 [History] Diltiazem HCl [Diltiazem 24Hr Cd] 120 mg PO DAILY #30 cap.er.24h 10/14/17 [Rx] Past Medical History HEENT History: Reports: Impaired Vision Cardiovascular History: Reports: Afib, Hypertension Gastrointestinal History: Reports: Cholelithiasis, Colon Polyp Genitourinary History: Reports: Prostate Disorder Other Genitourinary History: prostectomy Musculoskeletal History: Reports: Fracture, Gout Endocrine/Metabolic History: Reports: Obesity/BMI 30+ Hematologic History: Reports: Anticoagulation Therapy Oncologic (Cancer) History: Reports: Prostate - Infectious Disease History Infectious Disease History: Reports: Chicken Pox, Measles, Mumps - Past Surgical History HEENT Surgical History: Reports: Myringotomy w Tube(s), Tonsillectomy Cardiovascular Surgical History: Reports: Other (See Below) Other Cardiovascular Surgeries/Procedures: cardioverter GI Surgical History: Reports: Appendectomy, Cholecystectomy, Colonoscopy Male Surgical History: Reports: Prostate Biopsy, Prostatectomy Oncologic Surgical History: Reports: Other (See Below) Other Oncologic Surgeries/Procedures: prostate bx and removal Social & Family History - Tobacco Use Smoking Status *Q: Never Smoker - Caffeine Use Caffeine Use: Reports: Soda - Recreational Drug Use Recreational Drug Use: No ED ROS GENERAL - Review of Systems Review Of Systems: See Below Constitutional: Reports: No Symptoms HEENT: Reports: No Symptoms Respiratory: Reports: No Symptoms Cardiovascular: Reports: Chest Pain, Palpitations Endocrine: Reports: No Symptoms GI/Abdominal: Reports: No Symptoms : Reports: No Symptoms Musculoskeletal: Reports: No Symptoms Skin: Reports: No Symptoms ED EXAM, GENERAL - Physical Exam Exam: See Below Free Text/Narrative:: Pt arrived with a history of going back into atrial fib at work today. He did have some chest tightness at the time. He is fairly comfortable right now. he is not sob. Exam Limited By: No Limitations General Appearance: Alert, Mild Distress, Other (pupils are equal and reactive. ) Ears: Normal TMs Nose: Normal Inspection Throat/Mouth: Normal Inspection Head: Atraumatic Neck: Normal Inspection Respiratory/Chest: No Respiratory Distress Cardiovascular: Tachycardia, Irregularly Irregular GI/Abdominal: Soft, Non-Tender (Male) Exam: Deferred Rectal (Males) Exam: Deferred Back Exam: Normal Inspection Extremities: Normal Inspection Neurological: Alert, Oriented, Normal Cognition Psychiatric: Normal Affect Course - Vital Signs Last Recorded V/S: Last Vital Signs Temp 35.9 C 10/13/17 21:07 Pulse 50 L 10/14/17 09:00 Resp 17 10/14/17 09:00 BP 117/59 L 10/14/17 09:00 Pulse Ox 97 10/14/17 09:00 - Orders/Labs/Meds Labs: Laboratory Tests 10/13/17 10/13/17 10/13/17 Range/Units 07:13 07:13 07:13 WBC 6.1 (4.5-11.0) K/uL RBC 5.86 (4.30-5.90) M/uL Hgb 17.1 H (12.0-15.0) g/dL Hct 49.6 (40.0-54.0) % MCV 85 (80-98) fL MCH 29 (27-31) pg MCHC 35 (32-36) % Plt Count 335 (150-400) K/uL Neut % (Auto) 65 (36-66) % Lymph % (Auto) 21 L (24-44) % Harper % (Auto) 10 H (2-6) % Eos % (Auto) 3 (2-4) % Baso % (Auto) 1 (0-1) % PT 18.6 H (9.5-12.0) sec INR 1.70 H (0.80-1.20) Sodium 145 (140-148) mmol/L Potassium 3.7 (3.6-5.2) mmol/L Chloride 109 H (100-108) mmol/L Carbon Dioxide 24 (21-32) mmol/L Anion Gap 15.7 H (5.0-14.0) mmol/L BUN 20 H (7-18) mg/dL Creatinine 1.3 (0.8-1.3) mg/dL Est Cr Clr Drug Dosing 65.16 mL/min Estimated GFR (MDRD) 57 L (>60) Glucose 127 H (74-106) mg/dL Calcium 8.6 (8.5-10.1) mg/dL Magnesium (1.8-2.4) mg/dL Total Bilirubin 0.7 (0.2-1.0) mg/dL AST 19 (15-37) U/L ALT 38 (12-78) U/L Alkaline Phosphatase 105 (46-116) U/L Troponin I (0.000-0.056) ng/mL Total Protein 7.5 (6.4-8.2) g/dL Albumin 3.6 (3.4-5.0) g/dL Globulin 3.9 H (2.3-3.5) g/dL Albumin/Globulin Ratio 0.9 L (1.2-2.2) 10/13/17 10/13/17 Range/Units 07:13 07:13 WBC (4.5-11.0) K/uL RBC (4.30-5.90) M/uL Hgb (12.0-15.0) g/dL Hct (40.0-54.0) % MCV (80-98) fL MCH (27-31) pg MCHC (32-36) % Plt Count (150-400) K/uL Neut % (Auto) (36-66) % Lymph % (Auto) (24-44) % Harper % (Auto) (2-6) % Eos % (Auto) (2-4) % Baso % (Auto) (0-1) % PT (9.5-12.0) sec INR (0.80-1.20) Sodium (140-148) mmol/L Potassium (3.6-5.2) mmol/L Chloride (100-108) mmol/L Carbon Dioxide (21-32) mmol/L Anion Gap (5.0-14.0) mmol/L BUN (7-18) mg/dL Creatinine (0.8-1.3) mg/dL Est Cr Clr Drug Dosing mL/min Estimated GFR (MDRD) (>60) Glucose (74-106) mg/dL Calcium (8.5-10.1) mg/dL Magnesium 2.1 (1.8-2.4) mg/dL Total Bilirubin (0.2-1.0) mg/dL AST (15-37) U/L ALT (12-78) U/L Alkaline Phosphatase (46-116) U/L Troponin I < 0.017 (0.000-0.056) ng/mL Total Protein (6.4-8.2) g/dL Albumin (3.4-5.0) g/dL Globulin (2.3-3.5) g/dL Albumin/Globulin Ratio (1.2-2.2) Meds: Medications Discontinued Medications Generic Name Dose Route Start Last Admin Trade Name Freq PRN Reason Stop Dose Admin Acetaminophen 650 mg 10/13/17 10:46 Tylenol PO Q4H PRN Pain (Mild 1-3)/fever Allopurinol 300 mg 10/14/17 09:00 10/14/17 09:10 Zyloprim PO 300 mg DAILY ERIN Administration Diltiazem HCl 60 mg 10/13/17 07:43 10/13/17 07:51 Cardizem PO 10/13/17 07:44 60 mg ONETIME ONE Administration Diltiazem HCl 60 mg 10/13/17 08:31 10/13/17 08:57 Cardizem Sr PO 10/13/17 08:32 60 mg ONETIME ONE Administration Sodium Chloride 1,000 mls @ 300 mls/hr 10/13/17 07:45 10/13/17 07:51 Normal Saline IV 300 mls/hr ASDIRECTED ERIN Administration Ondansetron HCl 4 mg 10/13/17 10:46 Zofran Odt PO Q6H PRN Nausea able to take PO Potassium Chloride 40 meq 10/14/17 10:00 10/14/17 09:50 Klor-Con M20 PO 10/14/17 10:01 40 meq ONETIME ONE Administration Propofol Confirm 10/13/17 13:13 Diprivan 20 Ml Administered 10/13/17 13:14 Dose 200 mg .ROUTE .STK-MED ONE Sodium Chloride 10 ml 10/13/17 07:35 10/13/17 07:51 Saline Flush FLUSH 10 ml ASDIRECTED PRN Administration Keep Vein Open Warfarin Sodium 7.5 mg 10/13/17 13:00 10/13/17 12:36 Coumadin PO 10/13/17 13:01 7.5 mg ONETIME ONE Administration - Re-Assessments/Exams Free Text/Narrative Re-Assessment/Exam: 10/13/17 07:50 pt was hypotensive on arrival. He was given fluids and oral cardizem 60mg po since there is no iv cardizem. Departure - Departure Time of Disposition: 09:00 Disposition: Admitted As Inpatient 64 Condition: Fair Clinical Impression: Atrial fibrillation
[2017-10-13] MEDS ORDERED: Diltiazem 60 MG Cap.SR PO ONE (08:31)
--- NOTE | 2017-10-13 09:41 | PCM.HP ---
H&P History of Present Illness - General Date of Service: 10/13/17 Admit Problem/Dx: Admission Diagnosis/Problem Admission Diagnosis/Problem Atrial fibrillation with rapid ventricular response Source of Information: Patient, Family, Provider - History of Present Illness Initial Comments - Free Text/Narative: Cameron presented to the emergency room with acute onset of palpitations, mild shortness of breath, mild chest pressure as well as some visual changes. The episode felt very similar to previous episodes of atrial fibrillation. Symptom onset was this morning shortly after arriving at work. He felt well yesterday. He has not had recent fevers or chills. No recent difficulties with vomiting or diarrhea. Functional status had been back to normal recently. He reports he has been taking his medications. Lower extremity edema is mild and at his usual level. He does not report chest pain. Workup in the emergency room revealed atrial fibrillation with a rapid ventricular response. Laboratory testing has been unremarkable. He has received a dose of oral diltiazem with minimal improvement in his heart rate. He will be admitted for further management. - Related Data Allergies/Adverse Reactions: Allergies Allergy/AdvReac Type Severity Reaction Status Date / Time No Known Allergies Allergy Verified 10/13/17 07:23 Home Medications: Home Meds Triamterene/Hydrochlorothiazid [Triamterene-HCTZ 37.5-25 MG] 1 each PO DAILY [History] Allopurinol [Zyloprim] 300 mg PO DAILY 09/05/16 [History] Metoprolol Tartrate 12.5 mg PO DAILY 09/05/16 [History] Nitroglycerin 0.4 mg SL ASDIRECTED PRN 09/05/16 [History] Warfarin [Coumadin] 5 mg PO DAILY 09/05/16 [History] Multivitamin with Minerals [Multiple Vitamin] 1 tab PO DAILY 09/28/17 [History] Past Medical History HEENT History: Reports: Impaired Vision Cardiovascular History: Reports: Afib, Hypertension Gastrointestinal History: Reports: Cholelithiasis, Colon Polyp Genitourinary History: Reports: Prostate Disorder Other Genitourinary History: prostectomy Musculoskeletal History: Reports: Fracture, Gout Endocrine/Metabolic History: Reports: Obesity/BMI 30+ Hematologic History: Reports: Anticoagulation Therapy Oncologic (Cancer) History: Reports: Prostate - Infectious Disease History Infectious Disease History: Reports: Chicken Pox, Measles, Mumps - Past Surgical History HEENT Surgical History: Reports: Myringotomy w Tube(s), Tonsillectomy Cardiovascular Surgical History: Reports: Other (See Below) Other Cardiovascular Surgeries/Procedures: cardioverter GI Surgical History: Reports: Appendectomy, Cholecystectomy, Colonoscopy Male Surgical History: Reports: Prostate Biopsy, Prostatectomy Oncologic Surgical History: Reports: Other (See Below) Other Oncologic Surgeries/Procedures: prostate bx and removal Social & Family History - Family History Cardiac: Denies: CAD - Tobacco Use Smoking Status *Q: Never Smoker - Caffeine Use Caffeine Use: Reports: Soda - Alcohol Use Alcohol Use History: No - Recreational Drug Use Recreational Drug Use: No H&P Review of Systems - Review of Systems: Review Of Systems: See Below Free Text/Narrative: A complete 12 point review of systems was obtained. Pertinent positives and negatives are noted in the history of present illness. All other systems were reviewed and were negative except as noted. Exam - Exam Exam: See Below - Vital Signs Vital Signs: Last Vital Signs Temp 36.6 C 10/13/17 07:14 Pulse 124 H 10/13/17 08:40 Resp 12 10/13/17 08:40 BP 119/93 H 10/13/17 08:40 Pulse Ox 95 10/13/17 08:40 Weight: 124.4 kg - Exam Quality Assessment: No: Supplemental Oxygen General: Alert, Oriented, Cooperative. No: Mild Distress HEENT: Conjunctiva Clear, Mucosa Moist & [place]. No: Scleral Icterus Neck: Supple, Trachea Midline. No: Lymphadenopathy Lungs: Clear to Auscultation, Normal Respiratory Effort Cardiovascular: Irregular Rhythm, Tachycardia. No: Systolic Murmur GI/Abdominal Exam: Normal Bowel Sounds, Soft, Non-Tender, No Distention Back Exam: Normal Inspection, Full Range of Motion Extremities: Pedal Edema (trace bilateral ankle edema). No: Increased Warmth Skin: Warm, Dry Neuro Extensive - Mental Status: Alert, Oriented x3, Nl Response to Commands Neuro Extensive - Motor, Sensory, Reflexes: CN II-XII Intact. No: Dysarthria, Abnormal Motor Psychiatric: Alert, Normal Affect - Patient Data Lab Results Last 24 hrs: Laboratory Results - last 24 hr 10/13/17 10/13/17 10/13/17 Range/Units 07:13 07:13 07:13 WBC 6.1 (4.5-11.0) K/uL RBC 5.86 (4.30-5.90) M/uL Hgb 17.1 H (12.0-15.0) g/dL Hct 49.6 (40.0-54.0) % MCV 85 (80-98) fL MCH 29 (27-31) pg MCHC 35 (32-36) % Plt Count 335 (150-400) K/uL Neut % (Auto) 65 (36-66) % Lymph % (Auto) 21 L (24-44) % [place] % (Auto) 10 H (2-6) % Eos % (Auto) 3 (2-4) % Baso % (Auto) 1 (0-1) % PT 18.6 H (9.5-12.0) sec INR 1.70 H (0.80-1.20) Sodium 145 (140-148) mmol/L Potassium 3.7 (3.6-5.2) mmol/L Chloride 109 H (100-108) mmol/L Carbon Dioxide 24 (21-32) mmol/L Anion Gap 15.7 H (5.0-14.0) mmol/L BUN 20 H (7-18) mg/dL Creatinine 1.3 (0.8-1.3) mg/dL Est Cr Clr Drug Dosing 65.16 mL/min Estimated GFR (MDRD) 57 L (>60) Glucose 127 H (74-106) mg/dL Calcium 8.6 (8.5-10.1) mg/dL Magnesium (1.8-2.4) mg/dL Total Bilirubin 0.7 (0.2-1.0) mg/dL AST 19 (15-37) U/L ALT 38 (12-78) U/L Alkaline Phosphatase 105 (46-116) U/L Troponin I (0.000-0.056) ng/mL Total Protein 7.5 (6.4-8.2) g/dL Albumin 3.6 (3.4-5.0) g/dL Globulin 3.9 H (2.3-3.5) g/dL Albumin/Globulin Ratio 0.9 L (1.2-2.2) 10/13/17 10/13/17 Range/Units 07:13 07:13 WBC (4.5-11.0) K/uL RBC (4.30-5.90) M/uL Hgb (12.0-15.0) g/dL Hct (40.0-54.0) % MCV (80-98) fL MCH (27-31) pg MCHC (32-36) % Plt Count (150-400) K/uL Neut % (Auto) (36-66) % Lymph % (Auto) (24-44) % [place] % (Auto) (2-6) % Eos % (Auto) (2-4) % Baso % (Auto) (0-1) % PT (9.5-12.0) sec INR (0.80-1.20) Sodium (140-148) mmol/L Potassium (3.6-5.2) mmol/L Chloride (100-108) mmol/L Carbon Dioxide (21-32) mmol/L Anion Gap (5.0-14.0) mmol/L BUN (7-18) mg/dL Creatinine (0.8-1.3) mg/dL Est Cr Clr Drug Dosing mL/min Estimated GFR (MDRD) (>60) Glucose (74-106) mg/dL Calcium (8.5-10.1) mg/dL Magnesium 2.1 (1.8-2.4) mg/dL Total Bilirubin (0.2-1.0) mg/dL AST (15-37) U/L ALT (12-78) U/L Alkaline Phosphatase (46-116) U/L Troponin I < 0.017 (0.000-0.056) ng/mL Total Protein (6.4-8.2) g/dL Albumin (3.4-5.0) g/dL Globulin (2.3-3.5) g/dL Albumin/Globulin Ratio (1.2-2.2) Result Diagrams: 10/13/17 07:13 10/13/17 07:13 *Q Meaningful Use (ADM) - VTE Risk Assess *Q Each Risk Factor Represents 1 Point: Age 41 - 59 years, Swollen Legs, Current, Obesity ( BMI > 25 kg/m2) Total Score 1 Point Risk Factors: 3 Each Risk Factor Represents 2 Points: Malignancy (present or previous) Total Score 2 Point Risk Factors: 2 Each Risk Factor Represents 3 Points: None Total Score 3 Point Risk Factors: 0 Each Risk Factor Represents 5 Points: None Total Score 5 Point Risk Factors: 0 Venous Thromboembolism Risk Factor Score *Q: 5 - Problem List (1) Paroxysmal atrial fibrillation with rapid ventricular response SNOMED Code(s): 664225835, 197116415566300 ICD Code: I48.0 - PAROXYSMAL ATRIAL FIBRILLATION Status: Acute Current Visit: No (2) Essential hypertension SNOMED Code(s): 29053189 ICD Code: I10 - ESSENTIAL (PRIMARY) HYPERTENSION Status: Chronic Current Visit: No Problem List Initiated/Reviewed/Updated: Yes Orders Last 24hrs: Active Orders 24 hr Category Date Time Status Patient Status Manage Transfer [TRANSFER] Routine ADT 10/13/17 09:36 Ordered EKG Documentation Completion [RC] ASDIRECTED Care 10/13/17 07:51 Active Sodium Chloride 0.9% [Normal Saline] 1,000 ml Med 10/13/17 07:45 Active IV ASDIRECTED Sodium Chloride 0.9% [Saline Flush] Med 10/13/17 07:35 Active 10 ml FLUSH ASDIRECTED PRN Saline Lock Insert [OM.PC] Routine Oth 10/13/17 07:35 Ordered Resuscitation Status Routine Resus Stat 10/13/17 09:37 Ordered EKG 12 Lead [EK] Routine Ther 10/13/17 07:51 Ordered Medication Orders Sodium Chloride (Normal Saline) 1,000 mls @ 300 mls/hr IV ASDIRECTED ERIN Last Admin: 10/13/17 07:51 Dose: 300 mls/hr Sodium Chloride (Saline Flush) 10 ml FLUSH ASDIRECTED PRN PRN Reason: Keep Vein Open Last Admin: 10/13/17 07:51 Dose: 10 ml Assessment/Plan Comment:: ASSESSMENT AND PLAN - Paroxysmal atrial fibrillation with rapid ventricular response - most recent episode was about 2 weeks ago which did respond to cardioversion. No obvious trigger at this point. He does have an upcoming appointment with cardiology and in particular electrophysiology to discuss ablation. No evidence for ischemia. During his last visit he did not respond well to medications to slow his rate and did require cardioversion. INR is very slightly subtherapeutic this morning. we discussed potential treatment options including cardioversion. At this point I think the potential benefits of the cardioversion outweigh the risk given his symptoms of significant shortness of breath as well as the chest pressure. He is interested in having a repeat cardioversion done. -nothing by mouth status -Cardiac monitoring -Plan for cardioversion this afternoon -Hold metoprolol and triamterene/hydrochlorothiazide -Assess blood pressure and heart rate, consider starting diltiazem this afternoon -continue warfarin, plan for 7.5 mg this afternoon Essential hypertension - blood pressure on the low side this morning. Metoprolol and combination pill will be on hold until we see how his blood pressure does throughout the day. -Hold medications as above Maintenance issues - - DVT prophylaxis - warfarin - GI prophylaxis - not indicated - Nutrition - nothing by mouth until after the cardioversion - [place] catheter - not indicated CODE STATUS - full code Admission justification - This patient will be admitted for inpatient services and is medically appropriate meeting medical necessity for inpatient admission as outlined in my documentation. I reasonably expect the patient will require inpatient services that span a period time over 2 midnights. I reasonably expect this patient to be discharged or transferred within 96 hours [facility]. Disposition - anticipate discharge to home tomorrow Primary care physician - Dr David Fernandes M.D.
[2017-10-13] MEDS ORDERED: Ondansetron 4 MG Tab.DIS PO PRN (10:46)
[2017-10-13] MEDS ORDERED: Acetaminophen 325 MG Tab PO PRN (10:46)
[2017-10-13] MEDS ORDERED: Warfarin 2.5 MG Tab PO ONE (13:00)
[2017-10-13] MEDS ORDERED: Propofol 200 MG/20 ML SDV ONE (13:13)
--- NOTE | 2017-10-13 13:13 | PCM.PRNOTE ---
- Free Text/Narrative Note: Date of service: 10/13/2017 Proposed procedure: Synchronized cardioversion Preprocedure diagnosis: Paroxysmal atrial fibrillation with rapid ventricular response Post procedure diagnosis: Paroxysmal atrial fibrillation with rapid ventricular response Indication for procedure: Cameron was evaluated today for management atrial fibrillation/atrial flutter with symptoms and/or rapid ventricular response. Synchronized cardioversion was recommended as a primary treatment. Description of the procedure: Cameron is currently located in room 125 of the intensive care unit. We have reviewed the potential risks of electrical cardioversion including but not limited to: Superficial skin renner, ineffective treatment, other arrhythmias, reaction to anesthesia medications or potentially asystole. The benefits of the procedure have also been reviewed. At this time the patient wishes to proceed with electrical cardioversion. All necessary pre- procedure information and paperwork has been provided and completed, respectively. The patient was connected to cardioversion pads and monitoring equipment per protocol. Prior to the procedure, a timeout was held with nursing and anesthesia present to confirm the right patient and right procedure. Once appropriate anesthesia was applied the machine was charged to 200 Joules and a synchronized electrical shock was applied. The patient was successfully converted to normal sinus rhythm based on telemetry monitoring. They will remain in their current location until anesthesia has dissipated and the patient is more awake and alert. He will be observed overnight for close monitoring of heart rhythm and blood pressure. Anticoagulation should be continued for at least one month post cardioversion. There were no immediate complications noted from the procedure. Post procedure EKG is pending at the time of dictation. Twin Fernandes M.D.
[2017-10-14] MEDS ORDERED: Allopurinol 300 MG Tab PO SCH (09:00)
[2017-10-14 09:14] VITALS: BP 117/59
--- NOTE | 2017-10-14 09:56 | PCM.DCSUM1 ---
Discharge Summary - Hospital Course Brief History: 57-year-old male with paroxysmal atrial fibrillation who presented with palpitations, shortness of breath and chest pressure. He was admitted for management of paroxysmal atrial fibrillation with rapid ventricular response. - Discharge Data Discharge Date: 10/14/17 Discharge Disposition: Home, Self-Care 01 Condition: Fair - Discharge Diagnosis/Problem(s) (1) Paroxysmal atrial fibrillation with rapid ventricular response SNOMED Code(s): 682889842, 789604232031676 ICD Code: I48.0 - PAROXYSMAL ATRIAL FIBRILLATION Status: Acute (2) Essential hypertension SNOMED Code(s): 00606443 ICD Code: I10 - ESSENTIAL (PRIMARY) HYPERTENSION Status: Chronic - Patient Summary/Data Hospital Course: 57-year-old male with paroxysmal atrial fibrillation who presented with chest tightness and shortness of breath. He was found to be in atrial fibrillation with a rapid ventricular response. Medications did provide some mild rate slowing but did not convert him so he was admitted to the intensive care unit for further management. We discussed treatment options including additional medication management versus cardioversion. Medication management last time was not very successful so we elected to utilize the cardioversion shortly after admission. He was successfully cardioverted with a single shock. Overnight his blood pressures were stable and his heart rate remained slightly bradycardic with a sinus rhythm. The morning after admission he has remained stable with no acute events. We discussed potential medication management options. We have elected to utilize monotherapy with diltiazem. This should provide adequate blood pressure control as well as rate slowing effect and hopefully will help maintain him in a sinus rhythm. Metoprolol and his triamterene/ hydrochlorothiazide will be on hold at this time. He did receive a dose of potassium for a borderline low of 3.7. Otherwise his labs are normal. He did not have any fevers. He does have scheduled follow-up with cardiology in just over 2 weeks. He is up and walking around and feels okay. I believe he is safe for discharge home and outpatient management at this point. I did provide a new prescription for the diltiazem which she will take once daily. - Patient Instructions Diet: Heart Healthy Diet Activity: As Tolerated Driving: May Drive Today Showering/Bathing: May Shower Notify Provider of: Fever, Increased Pain, Nausea and/or Vomiting Other/Special Instructions: 1. You were in the hospital for management of paroxysmal atrial fibrillation with rapid ventricular response. Your heart rate has returned to normal using a combination of medications and electrical cardioversion. I recommend starting diltiazem 120 mg capsules. Taking 1 capsule daily will hopefully control your heart rate, your heart rhythm as well as your blood pressure. 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 2. Stop taking metoprolol and your blood pressure medication triamterene/hydrochlorothiazide. The plan is for us to control heart rate and blood pressure utilizing only the diltiazem. 3. Continue taking your warfarin but increase your dose to 5 mg every day. You should follow-up with the Coumadin clinic this week for repeat INR level. 4. Follow up with Dr. Hernandez in 1 week for hospital follow-up and recheck of heart rate and blood pressure. 5. Seek medical attention if you have return of the palpitations, chest pressure and/or shortness of breath - Discharge Plan Prescriptions/Med Rec: Diltiazem HCl [Diltiazem 24Hr Cd] 120 mg PO DAILY #30 cap.er.24h Home Medications: Home Meds Allopurinol [Zyloprim] 300 mg PO DAILY 09/05/16 [History] Nitroglycerin 0.4 mg SL ASDIRECTED PRN 09/05/16 [History] Warfarin [Coumadin] 5 mg PO DAILY 09/05/16 [History] Multivitamin with Minerals [Multiple Vitamin] 1 tab PO DAILY 09/28/17 [History] Diltiazem HCl [Diltiazem 24Hr Cd] 120 mg PO DAILY #30 cap.er.24h 10/14/17 [Rx] Patient Handouts: Diltiazem extended-release capsules or tablets, Atrial Fibrillation Referrals: Terry Hernandez MD [Primary Care Provider] - (f/u in one week for hospital f/u and heart rate check) - Discharge Summary/Plan Comment DC Time >30 min.: No (25) - Patient Data Vitals - Most Recent: Last Vital Signs Temp 35.9 C 10/13/17 21:07 Pulse 50 L 10/14/17 09:00 Resp 17 10/14/17 09:00 BP 117/59 L 10/14/17 09:00 Pulse Ox 97 10/14/17 09:00 Weight - Most Recent: 124.4 kg I&O - Last 24 hours: Intake & Output 10/13/17 10/14/17 10/14/17 22:59 06:59 14:59 Intake Total 960 Output Total 600 Balance 960 -600 Lab Results - Last 24 hrs: Laboratory Results - last 24 hr 10/14/17 10/14/17 Range/Units 05:49 05:49 PT 20.2 H (9.5-12.0) sec INR 1.84 H (0.80-1.20) Sodium 144 (140-148) mmol/L Potassium 3.5 L (3.6-5.2) mmol/L Chloride 110 H (100-108) mmol/L Carbon Dioxide 27 (21-32) mmol/L Anion Gap 10.5 (5.0-14.0) mmol/L BUN 17 (7-18) mg/dL Creatinine 1.1 (0.8-1.3) mg/dL Est Cr Clr Drug Dosing 77.01 mL/min Estimated GFR (MDRD) > 60 (>60) Glucose 108 H (74-106) mg/dL Calcium 8.2 L (8.5-10.1) mg/dL Med Orders - Current: Current Medications Acetaminophen (Tylenol) 650 mg PO Q4H PRN PRN Reason: Pain (Mild 1-3)/fever Allopurinol (Zyloprim) 300 mg PO DAILY ERIN Last Admin: 10/14/17 09:10 Dose: 300 mg Ondansetron HCl (Zofran Odt) 4 mg PO Q6H PRN PRN Reason: Nausea able to take PO Potassium Chloride (Klor-Con M20) 40 meq PO ONETIME ONE Stop: 10/14/17 10:01 Last Admin: 10/14/17 09:50 Dose: 40 meq Sodium Chloride (Saline Flush) 10 ml FLUSH ASDIRECTED PRN PRN Reason: Keep Vein Open Last Admin: 10/13/17 07:51 Dose: 10 ml Discontinued Medications Diltiazem HCl (Cardizem) 60 mg PO ONETIME ONE Stop: 10/13/17 07:44 Last Admin: 10/13/17 07:51 Dose: 60 mg Diltiazem HCl (Cardizem Sr) 60 mg PO ONETIME ONE Stop: 10/13/17 08:32 Last Admin: 10/13/17 08:57 Dose: 60 mg Sodium Chloride (Normal Saline) 1,000 mls @ 300 mls/hr IV ASDIRECTED ERIN Last Admin: 10/13/17 07:51 Dose: 300 mls/hr Propofol (Diprivan 20 Ml) Confirm Administered Dose 200 mg .ROUTE .STK-MED ONE Stop: 10/13/17 13:14 Warfarin Sodium (Coumadin) 7.5 mg PO ONETIME ONE Stop: 10/13/17 13:01 Last Admin: 10/13/17 12:36 Dose: 7.5 mg - Exam Quality Assessment: Denies: Supplemental Oxygen General: Reports: Alert, Oriented, Cooperative, No Acute Distress Neck: Reports: Supple Lungs: Reports: Normal Respiratory Effort Cardiovascular: Reports: Regular Rhythm, Bradycardia Extremities: No Pedal Edema Psy/Mental Status: Reports: Alert, Normal Affect
[2017-10-14] MEDS ORDERED: Potassium Chloride 20 MEQ Tab.ER PO ONE (10:00)
== END 2017-10-14 10:33 | disposition home or self-care (01) ==
LOC: JP.ED 06:57 → JP.ICU 09:36
PROVIDERS: ADMIT Internal Medicine; ATTEND Internal Medicine
DX: I48.0 Paroxysmal atrial fibrillation (principal); I10 Essential (primary) hypertension; M10.9 Gout, unspecified; E66.9 Obesity, unspecified; Z68.38 Body mass index [BMI] 38.0-38.9, adult; Z85.46 Personal history of malignant neoplasm of prostate; Z79.01 Long term (current) use of anticoagulants; Z79.899 Other long term (current) drug therapy
CPT/HCPCS: 36415; 80048; 80053; 83735; 84484; 85025; 85610; 93005; 96360; 96361; 99285; A9270; J2704; J7030; J7050

== ENCOUNTER 2018-02-01 10:26 | Emergency (ER) | payer BC ==
[2018-02-01 11:26] VITALS: BP 160/92
--- NOTE | 2018-02-01 12:17 | CR ---
Chest 2V HISTORY: pain in rt chest--acute today. FINDINGS: Lungs appear clear and normally aerated. No pneumothorax is seen. Cardiomediastinal silhouette is wit hin normal limits. No vascular redistribution or pleural fluid can be seen. Bony structures and soft tissues are unremarkable. IMPRESSION: No acute chest abnormality identified.
--- NOTE | 2018-02-01 13:13 | EDM.PDOC ---
ED HPI GENERAL MEDICAL PROBLEM - General Chief Complaint: Chest Pain Stated Complaint: CHEST PRESSURE, PAIN ON RIGHT SIDE/HIGH BP Time Seen by Provider: 02/01/18 13:07 Source of Information: Reports: Patient History Limitations: Reports: No Limitations - History of Present Illness INITIAL COMMENTS - FREE TEXT/NARRATIVE: pt was at work today and hedeveloped pressure in the center of his chest and it moved to the rt chest. He got very sweaty with the tightness, He had very little discomfort by the tinme he arrived. He had a ablation for atrial fib about 1 month ago. Onset: Today, Sudden Duration: Hour(s): Location: Reports: Chest, Other ( Pt had tightness in his chest. ) Quality: Reports: Other ( tightness) Associated Symptoms: Reports: Shortness of Breath, Other ( chest tightness) Right Chest Pain Score (Numeric/FACES): 6 - Related Data Allergies Allergy/AdvReac Type Severity Reaction Status Date / Time No Known Allergies Allergy Verified 10/13/17 07:23 Home Meds: Home Meds Allopurinol [Zyloprim] 300 mg PO DAILY 09/05/16 [History] Nitroglycerin 0.4 mg SL ASDIRECTED PRN 09/05/16 [History] Multivitamin with Minerals [Multiple Vitamin] 1 tab PO DAILY 09/28/17 [History] Diltiazem HCl [Diltiazem 24Hr Cd] 120 mg PO DAILY #30 cap.er.24h 10/14/17 [Rx] Flecainide [Tambocor] 100 mg PO Q12H 02/01/18 [History] Metoprolol Tartrate 12.5 mg PO BID 02/01/18 [History] Rivaroxaban [Xarelto] 20 mg PO DAILY 02/01/18 [History] Past Medical History HEENT History: Reports: Impaired Vision Cardiovascular History: Reports: Afib, Hypertension Gastrointestinal History: Reports: Cholelithiasis, Colon Polyp Genitourinary History: Reports: Prostate Disorder Other Genitourinary History: prostectomy Musculoskeletal History: Reports: Fracture, Gout Endocrine/Metabolic History: Reports: Obesity/BMI 30+ Hematologic History: Reports: Anticoagulation Therapy Oncologic (Cancer) History: Reports: Prostate - Infectious Disease History Infectious Disease History: Reports: Chicken Pox - Past Surgical History HEENT Surgical History: Reports: Myringotomy w Tube(s), Tonsillectomy Cardiovascular Surgical History: Reports: Cardiac Ablation, Other (See Below) Other Cardiovascular Surgeries/Procedures: cardioverter GI Surgical History: Reports: Appendectomy, Cholecystectomy, Colonoscopy Male Surgical History: Reports: Prostate Biopsy, Prostatectomy Oncologic Surgical History: Reports: Other (See Below) Other Oncologic Surgeries/Procedures: prostate bx and removal Social & Family History - Tobacco Use Smoking Status *Q: Never Smoker - Caffeine Use Caffeine Use: Reports: Tea - Recreational Drug Use Recreational Drug Use: No ED ROS GENERAL - Review of Systems Review Of Systems: See Below Constitutional: Reports: No Symptoms HEENT: Reports: No Symptoms Respiratory: Reports: No Symptoms Cardiovascular: Reports: Other ( chest tightness) Endocrine: Reports: No Symptoms GI/Abdominal: Reports: No Symptoms : Reports: No Symptoms Musculoskeletal: Reports: No Symptoms Skin: Reports: No Symptoms Neurological: Reports: No Symptoms Psychiatric: Reports: No Symptoms ED EXAM, GENERAL - Physical Exam Exam: See Below Free Text/Narrative:: pt arrived with a history of having chest tightness and getting very sweaty while at work. Exam Limited By: No Limitations General Appearance: Alert, Other (pt has very little distress at this time. ) Ears: Normal TMs Nose: Normal Inspection Throat/Mouth: Normal Inspection Head: Atraumatic Neck: Normal Inspection Respiratory/Chest: No Respiratory Distress, Decreased Breath Sounds Cardiovascular: Regular Rate, Rhythm GI/Abdominal: Soft, Non-Tender (Male) Exam: Deferred Rectal (Males) Exam: Deferred Back Exam: Normal Inspection Extremities: Normal Inspection Neurological: Alert, Oriented, Normal Cognition Psychiatric: Normal Affect Course - Vital Signs Last Recorded V/S: Last Vital Signs Temp 35.7 C 02/01/18 10:47 Pulse 64 02/01/18 11:26 Resp 14 02/01/18 11:26 BP 160/92 H 02/01/18 11:26 Pulse Ox 95 02/01/18 11:26 - Orders/Labs/Meds Orders: Active Orders 24 hr Category Date Time Status EKG Documentation Completion [RC] ASDIRECTED Care 02/01/18 10:46 Active EKG 12 Lead [EK] Routine Ther 02/01/18 10:45 Ordered Labs: Laboratory Tests 02/01/18 02/01/18 02/01/18 Range/Units 10:45 10:54 10:54 WBC 5.9 (4.5-11.0) K/uL RBC 5.33 (4.30-5.90) M/uL Hgb 15.8 H (12.0-15.0) g/dL Hct 46.3 (40.0-54.0) % MCV 87 (80-98) fL MCH 30 (27-31) pg MCHC 34 (32-36) % Plt Count 322 (150-400) K/uL Neut % (Auto) 71 H (36-66) % Lymph % (Auto) 17 L (24-44) % [place] % (Auto) 10 H (2-6) % Eos % (Auto) 1 L (2-4) % Baso % (Auto) 0 (0-1) % Sodium 140 (140-148) mmol/L Potassium 3.7 (3.6-5.2) mmol/L Chloride 105 (100-108) mmol/L Carbon Dioxide 24 (21-32) mmol/L Anion Gap 11.3 (5.0-14.0) mmol/L BUN 17 (7-18) mg/dL Creatinine 1.3 (0.8-1.3) mg/dL Est Cr Clr Drug Dosing 65.16 mL/min Estimated GFR (MDRD) 57 L (>60) Glucose 105 (74-106) mg/dL Calcium 9.6 D (8.5-10.1) mg/dL Total Bilirubin 0.7 (0.2-1.0) mg/dL AST 21 (15-37) U/L ALT 37 (12-78) U/L Alkaline Phosphatase 119 H (46-116) U/L Troponin I (0.000-0.056) ng/mL Total Protein 7.8 (6.4-8.2) g/dL Albumin 3.9 (3.4-5.0) g/dL Globulin 3.9 H (2.3-3.5) g/dL Albumin/Globulin Ratio 1.0 L (1.2-2.2) Urine Color Yellow Urine Appearance Slightly cloudy Urine pH 5.0 (4.5-8.0) Ur Specific [place] 1.025 (1.008-1.030) Urine Protein Negative (NEGATIVE) mg/dL Urine Glucose (UA) Normal (NEGATIVE) mg/dL Urine Ketones Negative (NEGATIVE) mg/dL Urine Occult Blood Large (NEGATIVE) Urine Nitrite Negative (NEGAITVE) Urine Bilirubin Small (NEGATIVE) Urine Urobilinogen 1 (NORMAL) mg/dL Ur Leukocyte Esterase Negative (NEGATIVE) Urine RBC 5-10 H (0-5) Urine WBC 0-5 (0-5) Ur Epithelial Cells Not seen Amorphous Sediment Not seen Urine Bacteria Not seen Urine Mucus Moderate Urine Other 02/01/18 02/01/18 Range/Units 10:54 13:18 WBC (4.5-11.0) K/uL RBC (4.30-5.90) M/uL Hgb (12.0-15.0) g/dL Hct (40.0-54.0) % MCV (80-98) fL MCH (27-31) pg MCHC (32-36) % Plt Count (150-400) K/uL Neut % (Auto) (36-66) % Lymph % (Auto) (24-44) % [place] % (Auto) (2-6) % Eos % (Auto) (2-4) % Baso % (Auto) (0-1) % Sodium (140-148) mmol/L Potassium (3.6-5.2) mmol/L Chloride (100-108) mmol/L Carbon Dioxide (21-32) mmol/L Anion Gap (5.0-14.0) mmol/L BUN (7-18) mg/dL Creatinine (0.8-1.3) mg/dL Est Cr Clr Drug Dosing mL/min Estimated GFR (MDRD) (>60) Glucose (74-106) mg/dL Calcium (8.5-10.1) mg/dL Total Bilirubin (0.2-1.0) mg/dL AST (15-37) U/L ALT (12-78) U/L Alkaline Phosphatase (46-116) U/L Troponin I 0.020 0.024 (0.000-0.056) ng/mL Total Protein (6.4-8.2) g/dL Albumin (3.4-5.0) g/dL Globulin (2.3-3.5) g/dL Albumin/Globulin Ratio (1.2-2.2) Urine Color Urine Appearance Urine pH (4.5-8.0) Ur Specific [place] (1.008-1.030) Urine Protein (NEGATIVE) mg/dL Urine Glucose (UA) (NEGATIVE) mg/dL Urine Ketones (NEGATIVE) mg/dL Urine Occult Blood (NEGATIVE) Urine Nitrite (NEGAITVE) Urine Bilirubin (NEGATIVE) Urine Urobilinogen (NORMAL) mg/dL Ur Leukocyte Esterase (NEGATIVE) Urine RBC (0-5) Urine WBC (0-5) Ur Epithelial Cells Amorphous Sediment Urine Bacteria Urine Mucus Urine Other - Re-Assessments/Exams Free Text/Narrative Re-Assessment/Exam: 02/01/18 14:15 pt had taken asa 325 at work. He had a second trop which proved to be neg. He is pain free at this time. Departure - Departure Time of Disposition: 14:16 Disposition: Home, Self-Care 01 Condition: Fair Clinical Impression: Atypical chest pain Referrals: Terry Hernandez MD [Primary Care Provider] - Forms: ED Department Discharge Care Plan Goals: rtc for a cardiolyte stress test, rtc if pt should suddenly have severe chest pain. - My Orders Last 24 Hours: My Active Orders 02/01/18 10:45 EKG 12 Lead [EK] Routine 02/01/18 10:46 EKG Documentation Completion [RC] ASDIRECTED - Assessment/Plan Last 24 Hours: My Active Orders 02/01/18 10:45 EKG 12 Lead [EK] Routine 02/01/18 10:46 EKG Documentation Completion [RC] ASDIRECTED
== END 2018-02-01 15:04 | disposition home or self-care (01) ==
LOC: JP.ED 10:26
DX: R07.89 Other chest pain (principal); I10 Essential (primary) hypertension; I48.91 Unspecified atrial fibrillation; Z79.899 Other long term (current) drug therapy; Z79.01 Long term (current) use of anticoagulants
CPT/HCPCS: 36415; 71046; 71046-26; 80053; 81001; 84484; 85025; 93005; 99285-25

== ENCOUNTER → 2018-08-24 | Day surgery (SDC) | payer BC, OTHER ==
[~2018-08-24] MED LIST: Lactated Ringers 1,000 ML IV SCH; Midazolam 1 MG/ML 2 ML SDV ONE; Propofol 200 MG/20 ML SDV ONE; fentaNYL 100 MCG/2 ML SDV ONE
[2018-08-24 09:59] VITALS: BP 125/71
--- NOTE | 2018-08-24 12:09 | OR ---
DATE OF PROCEDURE: 08/24/2018 PREOPERATIVE DIAGNOSIS: History of colon polyps. POSTOPERATIVE DIAGNOSIS: Two small colon polyps, history of colon polyps. PROCEDURE PERFORMED: Colonoscopy to the cecum with biopsy resection of two small colon polyps, hepatic flexure and right colon. SURGEON: Mauricio Ellis MD ANESTHESIA: IV anesthesia with monitored anesthesia care. INDICATION: This 58-year-old white male is referred for a colonoscopy because of a history of colon polyps. He says his last colonoscopic exam was done about a year ago. I counseled him for the procedure, including risks and alternatives, and he gave his informed consent to proceed. DESCRIPTION OF PROCEDURE: The patient was placed in the left lateral decubitus position. IV anesthesia was administered by the Anesthesia Service. Time-out was held. A rectal exam was performed, which was unremarkable. The flexible video Olympus colonoscope was introduced through his anus, up his rectum and out his colon all the way to the cecum. En route, in the hepatic flexure area, we saw a small polyp which was removed with a couple of bites of the biopsy forceps. In the right colon, we saw another small polyp, which was removed with a couple of bites of the biopsy forceps. Once the cecum was reached, the scope was slowly withdrawn examining the mucosa throughout. No additional mucosal abnormalities were noted. The scope was retroflexed in the rectum with the distal rectum appearing unremarkable. The scope was straightened and removed. He tolerated the procedure well. Mauricio Ellis MD /[id number] MTDD
== END ==
LOC: JP.SDS 06:31
PROVIDERS: ATTEND Surgery
DX: Z12.11 Encounter for screening for malignant neoplasm of colon (principal); D12.3 Benign neoplasm of transverse colon; D12.2 Benign neoplasm of ascending colon; Z86.010 Personal history of colon polyps
CPT/HCPCS: 45380; J2250; J2704; J3010; J7120

== ENCOUNTER 2021-09-28 07:36 | Day surgery (SDC) | payer BC, OTHER ==
[~2021-09-28 07:36] MED LIST changes: +Dextrose 5%-Lactated Ringers 1,000 ML IV SCH; -Lactated Ringers 1,000 ML IV SCH; -Midazolam 1 MG/ML 2 ML SDV ONE; -Propofol 200 MG/20 ML SDV ONE; -fentaNYL 100 MCG/2 ML SDV ONE
[2021-09-28] MEDS ORDERED: Propofol 200 MG/20 ML SDV ONE (07:48)
[2021-09-28] MEDS ORDERED: Midazolam 1 MG/ML 2 ML SDV ONE (07:49)
[2021-09-28] MEDS ORDERED: fentaNYL 100 MCG/2 ML SDV ONE (07:49)
[2021-09-28 10:18] VITALS: BP 139/68; PULSE 46
== END 2021-09-28 10:24 | disposition home or self-care (01) ==
LOC: JP.SDS 07:36
PROVIDERS: ATTEND Family Medicine
DX: Z12.11 Encounter for screening for malignant neoplasm of colon (principal); D12.3 Benign neoplasm of transverse colon; D12.4 Benign neoplasm of descending colon; I10 Essential (primary) hypertension; E78.5 Hyperlipidemia, unspecified; I48.91 Unspecified atrial fibrillation; Z86.010 Personal history of colon polyps
CPT/HCPCS: 88305; J2250; J2704; J3010; J7121